=== PATIENT | female | born 1980 | race Caucasian/White ===

== ENCOUNTER 2022-08-23 10:00 | Outpatient (RCR) | payer OTHER, SELFPAY | END 2022-09-14 15:05 | disposition home or self-care (01) | LOC: PT 10:00 | PROVIDERS: Visit Provider Orthopaedic Surgery Adult Reconstructive Orthopaedic Surgery | DX: M77.11 Lateral epicondylitis, right elbow (principal); Z48.817 Encounter for surgical aftercare following surgery on the skin and subcutaneous tissue; Z47.89 Encounter for other orthopedic aftercare | CPT/HCPCS: 97010; 97014; 97110; 97140; 97163; 97530; G0283 ==

== ENCOUNTER 2024-08-29 08:39 | Outpatient (CLI) | payer OTHER, SELFPAY ==
--- NOTE | 2024-08-29 | NM_ITS ---
FINAL REPORT CLINICAL HISTORY: RUQ PAIN COMPARISON: None FINDINGS: Sequential anterior projection images of the abdomen were obtained after the intravenous injection of 7.58 mCi technetium 99m Choletec. There is normal uptake of radiotracer by the liver. The bile ducts are visualized by 5 minutes. Gallbladder activity is seen by 45 minutes. Bowel activity is noted by 10 minutes. After 1 hour, 1.7 ?g of CCK was injected intravenously for calculation of gallbladder ejection fraction. The gallbladder ejection fraction is 93%, which is within normal limits. IMPRESSION: No evidence of cystic duct or bile duct obstruction. Normal gallbladder ejection fraction of 93%. Reviewed, Interpreted and Dictated by Darlin aSntos MD Transcribed by Kamille Yung Authenticated and [facility]
--- OUTSIDE RECORDS SUMMARY | 2024-08-29 08:41 | XMS_ITS | Data Portability ---
Author Organization [place] [employer] [facility] Address [address] [place] [address] Assessment No assessment recorded. Plan of Treatment Reminders Order Date Submit Date Provider Last Modified By Organization Details Last Modified Time Details Appointments FOLLOW UP 2024 11:00A M Alin Driver APRN Not available Not available Not available Lab None recorded. Referral None recorded. Procedures None recorded. Surgeries None recorded. Imaging NM, hepatobil iary scan, w/ CCK - Had abd CT in the ER [address] [facility] [address] [place], [address], 08/26/2024 16:38:46 XR, knee, 3 view [address], [address], 07/23/2024 16:58:07 Medication Orders lisinopri l 10 mg-hydroc hlorothia zide 12.5 mg tablet 2024 025 [facility], [address] [place] [address], [id number], 08/26/2024 14:07:40 dicyclomi ne 10 mg capsule 2024 025 [facility], [address] [place] [address], [id number], 08/26/2024 14:07:39 diclofena c sodium 50 mg tablet,de layed release 2024 025 [facility], [address] [place] [address], [id number], 08/19/2024 17:07:52 Mirena 21 mcg/24 hr (up to 8 years) 52 mg intrauter ine device 2023 024 [place] [id number] Not available 04/20/2023 16:46:19 Medrol (Gregory) 4 mg tablets in a dose pack [address] [facility], [address] [place] [address], [id number], 04/20/2023 15:01:24 cyclobenz aprine 5 mg tablet 2023 024 [facility], [address] [place] [address], [id number], 07/23/2024 14:03:15 Patient TargetsNo targets recorded. Patient Instructions Encounter Date Encounter Id Patient Instructions Last Modified By Organization Details Last Modified Time 07/23/2024 [id number] application of DONAL wrap* [email or web address] Not available 07/30/2024 09:49:29 Reason for Referral None Reported. Results Created Date Observation Date Name Description Value Unit Range Abnormal Flag Note LastModifiedBy Organization Detail LastModifiedTime 04/20/1904/28/2023 IMAGE -GUID ED PAP W/AGE BASED SCR CHRYSTAL COLS comment This order for age-b ased cervi jaci cance r and STI scree laurence follo ws ACOG guide lines (PB 168, 140, FAQ07 1). See indiv idual assay s for perfo rming site locat ion. Not Available [facility] [address] [facility], [place], [address], 04/28/2023 17:55:23 04/20/1904/28/2023 IMAGE -GUID ED PAP W/AGE BASED SCR CHRYSTAL COLS clinical information: normal None given Not Available [facility] [address] [place], [address], 04/28/2023 17:55:23 04/20/19 24 04/28/2023 IMAGE -GUID ED PAP W/AGE BASED SCR CHRYSTAL COLS LMP: normal NONE GIVEN Not Available [facility] [address] [place], [address], 04/28/2023 17:55:23 04/20/19 24 04/28/2023 IMAGE -GUID ED PAP W/AGE BASED SCR CHRYSTAL COLS prev. Pap: normal NONE GIVEN Not Available [facility] [address] [facility], [place], [address], 04/28/2023 17:55:23 04/20/19 24 04/28/2023 IMAGE -GUID ED PAP W/AGE BASED SCR CHRYSTAL COLS prev. BX: normal NONE GIVEN Not Available [facility] [address] [place], [address], 04/28/2023 17:55:23 04/20/19 24 04/28/2023 IMAGE -GUID ED PAP W/AGE BASED SCR CHRYSTAL COLS source: normal Vagin a, Cervi x, Endoc ervix Not Available [facility] [address] [place], [address], 04/28/2023 17:55:23 04/20/19 24 04/28/2023 IMAGE -GUID ED PAP W/AGE BASED SCR CHRYSTAL COLS statement of adequacy: normal Satis facto ry for evalu ation . Endoc ervic al/tr ansfo rmati on zone compo nent prese nt. Age and/o r menst rual statu s not provi ded Not Available [facility] [address] [facility] [place], [address], 04/28/2023 17:55:23 04/20/19 24 04/28/2023 IMAGE -GUID ED PAP W/AGE BASED SCR CHRYSTAL COLS interpretati on/result: normal Cytol ogy Resul ts: Negat dino for intra epith elial lesio n or han sheffield . Not Available [facility] [address] [place], [address], 04/28/2023 17:55:23 04/20/19 24 04/28/2023 IMAGE -GUID ED PAP W/AGE BASED SCR CHRYSTAL COLS comment: normal This Pap test has been evalu ated with compu ter harini nena techn ology . Not Available [facility] [address] [place], [address], 04/28/2023 17:55:23 04/20/19 24 04/28/2023 IMAGE -GUID ED PAP W/AGE BASED SCR CHRYSTAL COLS cytotechnolo gist: normal DXP, CT( CP) CT Scree laurence locat ion: [facility] [place] [address] [facility] [place] [address] Not Available [facility] [address] [facility], [place], [address], 04/28/2023 17:55:23 04/20/19 24 04/28/2023 IMAGE -GUID ED PAP W/AGE BASED SCR CHRYSTAL COLS pathologist: normal Renato Albright M.D. Board Certi fied in Anato yoselin Patho logy, Clini jaci Patho logy and Cytop athol ogy [phone] (elec troni c signa ture) Not Available [facility] [address] [place], [address], 04/28/2023 17:55:23 04/20/19 24 04/28/2023 IMAGE -GUID ED PAP W/AGE BASED SCR CHRYSTAL COLS comment EXPLA NATOR Y NOTE: The Pap is a scree laurence test for cervi jaci cance r. It is not a diagn ostic test and is subje ct to false negat dino and false posit dino resul ts. It is most relia ble when a satis facto ry sampl e, regul charlotte obtai raheel, is submi tted with relev ant clini jaci findi ngs and histo ry, and when the Pap resul t is evalu ated along with histo akash and curre nt clini jaci infor bruce n. Not Available [facility] [address] [place], [address], 04/28/2023 17:55:23 04/20/19 24 04/28/2023 IMAGE -GUID ED PAP W/AGE BASED SCR CHRYSTAL COLS HPV MRNA E6/E7 Detect ed not detect ed abnormal Metho dolog y: Trans cript ion-M ediat ed Ampli ficat ion This assay detec ts E6/E7 viral messe nger RNA (mRNA ) from 14 high- risk HPV types (16,1 8,31, 33,35 ,39,4 5,51, 52,56 ,58,5 9,66, 68). Cervi jaic sourc es are requi red for HPV testi ng. If a vagin al sourc e from a patie nt who has had a total hyste recto my with remov al of cervi x was submi tted, pleas e conta ct the testi ng labor atory for alter nativ e testi ng optio ns. For addit ional infor teri rowe e refer to http: //[facility] yuliya odell.que stdia gnost ics.c om/fa q/FAQ 129v1 (This link if provi ded for infor bruce odell/ educa jovita l purpo ses only. ) Not Available [facility] [address] [place], [address], 04/28/2023 17:55:23 04/20/19 24 04/28/2023 HPV GENOT YPES 16,18 /45 HPV 16 RNA NOT DETECT ED not detect ed Not Available [facility] [address] [place], [address], 04/28/2023 17:55:24 04/20/19 24 04/28/2023 HPV GENOT YPES 16,18 /45 HPV 18/45 RNA DETECT ED not detect ed abnormal Metho dolog y: Trans cript ion Media nena Ampli ficat ion Cervi jaci sourc es are requi red for HPV testi ng. If a vagin al sourc e from a patie nt who has had a total hyste recto my with remov al of cervi x was submi tted, pleas e conta ct the testi ng labor atory for alter nativ e testi ng optio ns. Not Available [facility] [address] [place] [address], [place], [address], 04/28/2023 17:55:24 08/20/19 25 08/19/2024 urina lysis , dipst ick Leukocytes Negati ve Not Available [address], [address], 08/19/2024 16:42:22 08/20/19 25 08/19/2024 urina lysis , dipst ick Nitrite negati ve Not Available [address], [address], 08/19/2024 16:42:22 08/20/19 25 08/19/2024 urina lysis , dipst ick Urobilinogen .2 Not Available [address], [address], 08/19/2024 16:42:22 08/20/19 25 08/19/2024 urina lysis , dipst ick Protein Negati ve Not Available [address], [address], 08/19/2024 16:42:22 08/20/19 25 08/19/2024 urina lysis , dipst ick pH 7.0 Not Available [address], [address], 08/19/2024 16:42:22 08/20/19 25 08/19/2024 urina lysis , dipst ick Blood Negati ve Not Available [address], [address], 08/19/2024 16:42:22 08/20/19 25 08/19/2024 urina lysis , dipst ick Specific [place] 1.025 Not Available [address], [address], 08/19/2024 16:42:22 08/20/19 25 08/19/2024 urina lysis , dipst ick Ketone Negati ve Not Available [address], [address], 08/19/2024 16:42:22 08/20/19 25 08/19/2024 urina lysis , dipst ick Bilirubin Negati ve Not Available [address], [address], 08/19/2024 16:42:22 08/20/19 25 08/19/2024 urina lysis , dipst ick Glucose Negati ve Not Available [address], [address], 08/19/2024 16:42:22 08/20/19 25 08/19/2024 urina lysis , dipst ick Appearance Slight ly Cloudy Not Available [address], [address], 08/19/2024 16:42:22 08/20/19 25 08/19/2024 urina lysis , dipst ick Color Yellow Not Available [address], [address], 08/19/2024 16:42:22 03/16/19 24 03/16/2023 US, trans vagin al No observ ation record ed. [email or web address] [address], [place], [address], 03/16/2023 11:13:29 07/24/19 25 XR, knee, 3 view No observ ation record ed. [email or web address] [address], [address], 07/23/2024 17:06:53 Result Notes None recorded. Problems Name Problem SNOMED Code Status Onset Date Resolution Date Notes Provider Name and Address Organization Details Recorded Time Generali zed anxiety disorder 35640825 Completed 201604/08/2020 Problem Code: F41.1; Problem Code Type: ICD-10; Not Available [facility] 22:15:25 Hyperten sive disorder 08910125 Completed 201604/08/2020 Problem Code: I10; Problem Code Type: ICD-10; Not Available [facility] 2 22:15:25 Low back pain 742900805 Completed 201602/07/2017 Problem Code: M54.5; Problem Code Type: ICD-10; Not Available [facility] 2 22:15:26 Pain in left lower limb 884207631 Completed 201602/07/2017 Not Available [facility] 2 22:15:26 Pain in limb 02731033 Completed 201602/07/2017 Problem Code: 729.5; Problem Code Type: ICD-9; Not Available [facility] 2 22:15:29 Breast lump 57340592 Completed 201602/07/2017 Problem Code: N63; Problem Code Type: ICD-10; Not Available [facility] 2 22:15:26 Polyp of cervix 53935129 Completed 201602/07/2017 Problem Code: N84.1; Problem Code Type: ICD-10; Not Available [facility] 2 22:15:26 Mucous polyp of cervix 24951127 Completed 201602/07/2017 Problem Code: 622.7; Problem Code Type: ICD-9; Not Available [facility] 2 22:15:29 Trichomo nal vulvovag initis 42507379 Completed 201605/06/2016 Problem Code: A59.01; Problem Code Type: ICD-10; Not Available [facility] 2 22:15:25 Low back pain 406719373 Completed 201602/07/2017 Problem Code: M54.5; Problem Code Type: ICD-10; Not Available [facility] 2 22:15:26 Prolapse d lumbar interver tebral disc 372934756 Completed 201604/08/2020 Problem Code: M51.26; Problem Code Type: ICD-10; Not Available [facility] 2 22:15:26 Infectio n by Trichomo darinel 50557593 Completed 201605/06/2016 Problem Code: 131.9; Problem Code Type: ICD-9; Not Available [facility] 2 22:15:28 Non-supp urative otitis media 043027112 Completed 201602/07/2017 Not Available [facility] 2 22:15:25 Dizzines s and giddines s 918769440 Completed 201602/07/2017 Problem Code: R42; Problem Code Type: ICD-10; Not Available [facility] 2 22:15:27 Acute frontal sinusiti s 92140639 Completed 201608/26/2016 Problem Code: J01.10; Problem Code Type: ICD-10; Not Available [facility] 2 22:15:27 Pain of breast 56672834 Completed 201612/04/2016 Problem Code: 611.71; Problem Code Type: ICD-9; Not Available [facility] 2 22:15:29 Left upper quadrant pain 172134809 Completed 201612/04/2016 Problem Code: R10.12; Problem Code Type: ICD-10; Not Available [facility] 2 22:15:29 Viral enteriti s of intestin e 17928674 Completed 201602/25/2017 Problem Code: A08.4; Problem Code Type: ICD-10; Not Available [facility] 2 22:15:25 Nausea and vomiting 76513249 Completed 201601/10/2017 Problem Code: R11.2; Problem Code Type: ICD-10; Not Available [facility] 2 22:15:27 Intestin al infectio us disease 231638622 Completed 201602/25/2017 Problem Code: 008.8; Problem Code Type: ICD-9; Not Available [facility] 2 22:15:28 Influenz a 8783314 Completed 201604/08/2017 Problem Code: J10.1; Problem Code Type: ICD-10; Not Available [facility] 2 22:15:25 Cough 35107228 Completed 201602/21/2017 Problem Code: R05; Problem Code Type: ICD-10; Not Available [facility] 2 22:15:27 Influenz a with respirat ory manifest ation other than pneumoni a Completed 201604/08/2017 Problem Code: 487.1; Problem Code Type: ICD-9; Not Available [facility] 2 22:15:29 Breast lump 86423614 Completed 201704/08/2020 Problem Code: N63; Problem Code Type: ICD-10; Not Available [facility] 2 22:15:26 Median nerve entrapme nt 679392118 Completed 201804/08/2020 Not Available [facility] 2 22:15:25 Sprain of radiocar pal ligament 076665184 Completed 201804/08/2020 Not Available [facility] 2 22:15:27 Nicotine dependen ce 53506846 Active 2020 Problem Code: F17.200; Problem Code Type: ICD-10; Not Available [facility] 22:15:25 Urinary tract infectio us disease 37044216 Active 2020 Problem Code: N39.0; Problem Code Type: ICD-10; Not Available [facility] 22:15:26 Dysuria 49764838 Active 2020 Problem Code: R30.0; Problem Code Type: ICD-10; Not Available [facility] 2 22:15:27 Exposure to SARS-CoV -2 Completed 202005/16/2021 Problem Code: Z20.822; Problem Code Type: ICD-10; Not Available [facility] 22:15:27 Tobacco dependen ce 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 16:56:57 [facility] hyperten chad 97665608 Active 2024 Antonia Driver APRN [address] [place], [address] , [employer] 16:57:45 Divertic ulitis of intestin e 870370891 Active 2024 Antonia Driver APRN [address] [place], [address] , [employer] 13:19:47 Right upper quadrant pain 276052115 Active 2024 Antonia Driver APRN [address] [place], [address] , [employer] 13:29:14 Problem Notes None recorded. Procedures Surgical History Date Name Laterality Status Provider Name and Address Organization Details Recorded Time 05/30/19 24 Colposcopy cancelled [employer] 05/24/2023 16:12:44 04/20/19 24 IUD Insertion completed Leonardo Del Angel CNM [address] [place], [address], [employer]. 04/20/2023 15:21:58 04/20/19 24 Date of Last Pap Smear completed [employer]. 05/04/2023 13:56:27 appendectomy completed [employer]. 04/06/2023 13:02:17 Removal of ovarian cyst(s) completed [employer]. 04/06/2023 13:02:26 Imaging Results None recorded. Procedure Notes None recorded. Medical Equipment None Reported. Allergies No known drug allergies Medications Name Sig Start Date Stop Date Status Note LastModified by Organization Details LastModified Time cyclobenzap rine 10 mg tablet TAKE 1 TABLET EVERY 8 HOURS NEEDED FOR MUSCLE SPASMS 01/23 completed Not Available Not Available Not Available amoxicillin 500 mg capsule Take 1 capsule every 8 hours by oral route. 08/26 completed Not Available Not Available Not Available Mirena 21 mcg/24 hr (up to 8 years) 52 mg intrauterin e device Take 1 device by intrauter ine route. 2023 active Not Available Not Available Not Avai lable promethazin e-DM 6.25 mg-15 mg/5 mL oral syrup Take 1 teaspoonf ul by mouth every 6 hours as needed. 04/08 completed Not Available Not Available Not Available tizanidine 4 mg tablet 1 po q hs 12/04 completed Not Available Not Available Not Available meloxicam 15 mg tablet Take 1 tab by mouth once daily for inflammat ion. 04/08 completed Not Available Not Available Not Available prednisone 20 mg tablet Take 2 tablets every day by oral route for 7 days. 02/26 completed Not Available Not Available Not Available medroxyprog esterone 5 mg tablet take 1 tablet (5 mg) by oral route once daily for 10 days 04/06 completed Not Available Not Available Not Available Zithromax Z-Gregory 250 mg tablet Take 2 tablet(s) by mouth on day 1 then 1 tablet every day for the next 4 days. 03/18 completed Not Available Not Available Not Available metronidazo le 500 mg tablet TAKE 1 TABLET 3 TIMES EACH DAY FOR 7 DAYS 01/23 completed Not Available Not Available Not Available dextrometho rphan-guaif enesin 10 mg-100 mg/5 mL oral syrup one teaspoon every 6 hours by mouth as needed 08/26 completed Not Available Not Available Not Available Tamiflu 75 mg capsule Take 1 capsule(s ) by mouth bid for 5 days 03/18 completed Not Available Not Available Not Available sulfamethox azole 800 mg-trimetho prim 160 mg tablet take 1 tablet by oral route every 12 hours for 10 days 05/16 completed Not Available Not Available Not Available tramadol 50 mg tablet 1 pill every 6 Hours prn pain. 08/04 completed Not Available Not Available Not Available ketorolac 30 mg/mL (1 mL) injection solution Inject 1 mL every 6 hours by intramusc ular route. 08/26 completed Not Available Not Available Not Available Zofran 4 mg tablet Take one by mouth every 8 hours as needed for nausea 02/07 completed Not Available Not Available Not Available oxycodone-a cetaminophe n 5 mg-325 mg tablet TAKE 1 TABLET EVERY 4 HOURS NEEDED FOR MODERATE PAIN 01/23 completed Not Available Not Available Not Available amoxicillin 875 mg tablet Take 1 tablet(s) by mouth q12h for 10 days 08/06 completed Not Available Not Available Not Available meclizine 25 mg tablet Take 1 tablet every 8 hours as needed 08/26 completed Not Available Not Available Not Available hydrocodone 7.5 mg-acetamin ophen 325 mg tablet TAKE 1 TABLET EVERY 6 TO 8 HOURS NEEDED FOR PAIN 01/23 completed Not Available Not Available Not Available cephalexin 500 mg capsule TAKE 1 CAPSULE EVERY 12 HOURS FOR 7 DAYS 04/06 completed Not Available Not Available Not Available naproxen sodium 550 mg tablet TAKE 1 TABLET EVERY 12 HOURS NEEDED 01/23 completed Not Available Not Available Not Available trazodone 150 mg tablet TAKE ONE TABLET BY MOUTH EVERY DAY NEEDED 04/06 completed Not Available Not Available Not Available hydroxyzine HCl 25 mg tablet 1 po bid 04/28 completed Not Available Not Available Not Available hydrochloro thiazide 25 mg tablet TAKE ONE TABLET BY MOUTH EVERY DAY in THE morning FOR BLOOD PRESSURE 08/26 completed Not Available Not Available Not Available diclofenac sodium 50 mg tablet,alisa yed release TAKE ONE TABLET BY MOUTH TWICE DAILY with a MEAL FOR 10 DAYS, FOR knee sprain 08/19 completed Not Available Not Available Not Available lisinopril 10 mg-hydrochl orothiazide 12.5 mg tablet Take 1 tablet every day by oral route in the morning, for BP. 2024 active Not Available Not Available Not Avai lable ibuprofen 600 mg tablet TAKE 1 TABLET EVERY 6 HOURS NEEDED 04/06 completed Not Available Not Available Not Available methylpredn isolone 4 mg tablets in a dose pack TAKE 6 TABLETS BY MOUTH ON DAY 1, TAKE 5 TABS ON DAY 2 ,TAKE 4 TABS ON DAY 3, TAKE 3 TABS ON DAY 4 , TAKE 2 TABS ON DAY 5, THEN TAKE 1 TAB ON DAY 6 04/19 completed Not Available Not Available Not Available albuterol sulfate HFA 90 mcg/actuati on aerosol inhaler INHALE 2 PUFFS EVERY 4 TO 6 HOURS NEEDED FOR SHORTNESS OF BREATH OR WHEEZING. DO NOT USE MORE THAN 16 PUFFS IN 24 HOURS 04/06 completed Not Available Not Available Not Available Naprosyn 500 mg tablet Take 1 tablet(s) by mouth bid 12/04 completed Not Available Not Available Not Available cefdinir 300 mg capsule Take 1 capsule every 12 hours by oral route with meals for 10 days. 02/26 completed Not Available Not Available Not Available neomycin 3.5 mg-polymyxi n 10,000 unit-hydroc ort 10 mg/mL eye drop,susp instill 1 drop into affected eye(s) by ophthalmi c route every 3 hours 05/16 completed Not Available Not Available Not Available doxycycline hyclate 100 mg tablet TAKE 1 TABLET EVERY 12 HOURS FOR 10 DAYS 02/26 completed Not Available Not Available Not Available dicyclomine 10 mg capsule Take 1 capsule 3 times a day by oral route as needed, for abd pain. 2024 active Not Available Not Available Not Avai lable amoxicillin 875 mg-potassiu m clavulanate 125 mg tablet Take 1 tablet every 12 hours by oral route. active Not Available Not Available No t Available cyclobenzap rine 5 mg tablet TAKE ONE TABLET BY MOUTH THREE TIMES DAILY NEEDED FOR muscle SPASM active Not Available Not Available No t Available Chantix Continuing Month Box 1 mg tablet 1 pill po BID 01/06 completed Not Available Not Available Not Available Chantix Starting Month Box 0.5 mg (11)-1 mg (42) tablets in dose pack Take as Directed 08/09 completed Not Available Not Available Not Available omeprazole 20 mg delayed release,dis integrating tablet Take by oral route. active Not Available Not Available No t Available Vitals Date Recorded Body weight Body temperature Heart rate Oxygen saturation Oxygen saturation in Arterial blood by Pulse oximetry Systolic And Diastolic Systolic And Diastolic Systolic And Diastolic Provider Name and Address Organization Details Last Updated DateTime 4 89406.7 3 g 98 [degF] 77 /min 98 % 98 % 160/80 mm[Hg] 153/90 mm[Hg] 155/83 mm[Hg] SCOTT DIXON [employer] 4 15:15:04 Date Recorded Body height Body mass index (BMI) Body weight Heart rate Oxygen saturation Oxygen saturation in Arterial blood by Pulse oximetry Systolic And Diastolic Provider Name and Address Organization Details Last Updated DateTime 4 167.64 cm 27.1 kg/m2 25635.2 4 g 79 /min 99 % 99 % 138/82 mm[Hg] GLENYS SHAW [employer] 4 15:01:15 Date Recorded Body weight Body temperature Heart rate Oxygen saturation Oxygen saturation in Arterial blood by Pulse oximetry Systolic And Diastolic Systolic And Diastolic Systolic And Diastolic Provider Name and Address Organization Details Last Updated DateTime 5 67632.0 5 g 98 [degF] 71 /min 97 % 97 % 202/102 mm[Hg] 183/101 mm[Hg] 161/73 mm[Hg] SCOTT [employer] 5 14:03:00 Date Recorded Body weight Body temperature Heart rate Oxygen saturation Oxygen saturation in Arterial blood by Pulse oximetry Systolic And Diastolic Systolic And Diastolic Systolic And Diastolic Provider Name and Address Organization Details Last Updated DateTime 5 31628.8 6 g 98.7 [degF] 91 /min 96 % 96 % 160/90 mm[Hg] 156/80 mm[Hg] 155/82 mm[Hg] SCOTT [employer] 5 16:42:00 Date Recorded Body weight Body temperature Heart rate Oxygen saturation Oxygen saturation in Arterial blood by Pulse oximetry Systolic And Diastolic Systolic And Diastolic Systolic And Diastolic Provider Name and Address Organization Details Last Updated DateTime 5 01215.1 1 g 98.8 [degF] 98 /min 96 % 96 % 161/79 mm[Hg] 146/72 mm[Hg] 145/74 mm[Hg] [employer] 5 13:16:15 Social History Question Answer Notes LastModified by Organizat ion Details LastModified Time Tobacco Smoking Status Current Every Day Smoker SocialHistor yQuestion: 'Tobacco/Alc ohol/Supplem ents'; SocialHistor yResponse: 'Current Everyday Smoker'; Not Available [facility] 10/18/2021 22:58:54 Do You Have An Advance Directive? No Information not available 01/23/2023 Is Your Home Air Conditioned? Yes Information not available 01/23/2023 In The 14 Days Before Symptom Onset, Have You Had Close Contact With A Laboratory-confir [facility] COVID-19 While That Case Was Ill? No Information not available 01/23/2023 In The 14 Days Before Symptom Onset, Have You Had Close Contact With A Person Who Is Under Investigation For COVID-19 While That Person Was Ill? No Information not available 01/23/2023 Have You Been To An Area Known To Be High Risk For COVID-19? No Information not available 01/23/2023 What Type Of Diet Are You Following? REGULAR Information not available 01/23/2023 Do You Have A Medical Power Of [employer]? No Information not available 01/23/2023 What Was The Date Of Your Most Recent Tobacco Screening? 08/26/2024 Information not available 08/26/2024 What Is Your Current Pack Years? 20-29packye ars Information not available 01/23/2023 Do You Use Your Seat Belt Or Car Seat Routinely? Yes Information not available 01/23/2023 Are You Sexually Active? Yes [email or web address] Information not available 04/06/2023 Do You Have Smoke And Carbon Monoxide Detectors In Your Home? Yes Information not available 01/23/2023 At What Age Did You Start Smoking Tobacco? 17 Information not available 01/23/2023 Are You Passively Exposed To Smoke? Yes Information no t available 01/23/2023 Are There Any Smokers In Your House? Yes Information not available 01/23/2023 How Much Tobacco Do You Smoke? 1 PPD Information not available 01/23/2023 Do You Use Sunscreen Routinely? No Information not available 01/23/2023 Have You Recently Traveled Abroad? No Information not available 01/23/2023 Do You Have Any Dietary Restrictions? No Information not available 01/23/2023 Sex: Female Functional Status Question Answer Note LastModified by Organizat ion Details LastModified Time Do you use any illicit or recreational drugs? No Information not available 01/23/2023 Do you or have you ever used any other forms of tobacco or nicotine? No Information not available 01/23/2023 What is your level of alcohol consumption? None Information not available 01/23/2023 Are you currently employed? Yes Information not available 01/23/2023 Do you have transportation difficulties? No Information not available 01/23/2023 Mental Status None recorded. Family History Relationship Description Onset Age of this Age Resolved Age Notes LastModified by Organization Details LastModified Time Unspecified Relation Family history of malignant neoplasm Relati ve: ''; [email or web address] Not available 10/18/2021 23:01:45 Unspecified Relation Family history of Hypertension Relati ve: ''; [email or web address] Not available 10/18/2021 23:01:45 Unspecified Relation Family history of diabetes mellitus type 2 Relati ve: ''; [email or web address] Not available 10/18/2021 23:01:46 Unspecified Relation Family history of Myocardial infarction Relati ve: ''; [email or web address] Not available 10/18/2021 23:01:46 Notes:*Procedure Description : Documented family medical history in mother*Relative: Mother *Procedure Description: Documented family medical history in father*Relative: Father *Procedure Description: Documented family medical history in brother*Relative: Brother Medical History No medical history recorded. Gynecological History Statement/Question Response Abnormal Pap Y Sexually Active? Y Menses Monthly Y STIs/STDs N Date of Last Pap Smear 04/20/2023 Age at Menarche 13 Most Recent Mammogram LMP Approximate Obstetrics History GPAL:G 2 P 2 0 0 2 Type Value Full Term 2 Living 2 Total 2 Immunizations Vaccine Type Date Status Note Provider Nam e and Address Organization Details Recorded Time Tdap 12/27/2015 completed Not Available [facility] 08/26/2024 12:26:48 COVID-19, mRNA, LNP-S, PF, 100 mcg/0.5mL dose or 50 mcg/0.25mL dose 10/14/2020 completed Not Available [facility] 12:26:48 COVID-19, mRNA, LNP-S, PF, 100 mcg/0.5mL dose or 50 mcg/0.25mL dose 11/11/2020 completed Not Available [facility] 12:26:48 Past Encounters Encounter ID Performer Location Encounter Start Date Encounter Closed Date Diagnosis/Indication Diagnosis SNOMED-CT Code Diagnosis ICD10 Code Diagnosis Note [id number] Antonia Driver[address] [address] 01/23/2023 13:02:20 01/23/2023 16:08:57 Acute exacerbation of chronic obstructive pulmonary disease 719176509 J44.1 New onset COPD with exacerbati on. Rest, push fluids, use of inhaler and mucinex explained. Insomnia 645221348 G47.0 0 Sleep hygiene explained. Tobacco de pendence caused by cigarettes 0027616976 7358212 F17.210 Long d/w pt regarding need for smoking cessation. [id number] Antonia Driver[address] [address] 02/26/2023 17:09:17 02/27/2023 08:59:50 Abnormal uterine bleeding 2386901651 9100 N93.9 She declines labs and transvag US today as she is uninsured. I will prescribe a trial of 10 days of provera, but cautioned her that if this continues she needs labs and US to r/o fibroid, malignancy , etc. Tobacco de pendence caused by cigarettes 8294481300 7889071 F17.210 Long d/w pt regarding need for smoking cessation. [id number] Leonardo Del Angel CNM [address],[place] [address] 04/06/2023 12:39:10 04/06/2023 13:50:08 Abnormal uterine bleeding 7846644062 9100 N93.9 [id number] Antonia Driver[address] [address] 04/11/2023 15:03:29 04/11/2023 15:40:10 Strain of left trapezius muscle 6180525791 1766487 S29.012A Adis, samples of topical volaren given and inst on use. Will avoid NSAIDS due to current DUB. Tobacco de pendence caused by cigarettes 7664314913 2271002 F17.210 Long d/w pt regarding need for smoking cessation. [id number] Leonardo Del Angel CNM [address] [place] [id number] 04/20/2023 14:48:03 04/20/2023 15:59:41 Irregular intermenstrual bleeding 75983060 N92.1 Insertion of intrauterine contraceptive device 32392545 Z30.023 [id number] [place] [address] 07/23/2024 13:32:24 07/23/2024 15:10:37 Pain of knee region 5879191010 M25.562 Sprain of medial collateral ligament of left knee joint 0034455535 2237671 S83.412A RICE, donal wrap applied, limited weight bearing. RTC for failure to improve with conservati ve tx in 1 week. [id number] [place] [address] 08/19/2024 16:32:11 08/19/2024 17:03:32 Acute low back pain 538903696 M54.50 Essential hypertension 79100576 I10 [id number] [place] [address] 08/26/2024 12:26:34 08/26/2024 13:46:27 Essential hypertension 01695773 I10 Continue HCTZ, add lisinopril . DASh diet, stop smoking! Right uppe r quadrant pain 162320724 R10.11 Suspect gallbladde r dz as etiology. Obtain HIDA scan to evaluate GB function as she had a fairly normal CT. Avoid fatty and fried foods. Health Concerns Section Related Observation LastModified by Organization Detai ls LastModified Time None Recorded Concern Status LastModified by Organization Details LastModified Time None Recorded Advance Directives Directive N: Payers Insurance Date Sequence Insurance Name Policy Number Policy Heard Covered Member ID Heard Member ID Guarantor Name 02/22/2023 SLIDING FEE SCHEDULE - DISCOUNT Celena Alpesh 07/23/2024 1 *SELF PAY* Juhi Betts 05/24/2023 SLIDING FEE SCHEDULE - DISCOUNT Celena Alpesh 08/25/2024 1 [facility] (MEDICAID REPLACEMENT - O) [place] Celena Betts [id number] Celena Betts Notes Date Note Type Note Provider Name and Address Organization Details Recorded Time 4 text/html Back PainReported bypatient.Location:thorac ic left; no radiation Quality:sharp; squeezing; tightness; burning Severity:worsening;pain level 6/10;interferes with sleep;interferes with work Duration:9 days; weeks Timing:acute Context:atraumatic; overuse Alleviating Factors:rest; position change; OTC analgesics; massage Aggravating Factors:twisting; extending back; pushing; pulling; reaching Associated Symptoms:no fever; no weakness; no numbness; no tingling; no shortness of breath; no unintentional weight loss; no chills; no night sweats; no gait instability; no recent increase in stress; no bowel dysfunction; no bladder dysfunction Previous Injury:no prior back injury; no prior malignancy; previous surgery/procedure date: Prior Imaging:none Antonia Driver APRN [address] [place] [address], [address], [employer]. 04/11/2023 16:09:42 4 text/html Pt here today for IUD insertion, see previous notes. Pt with hx of US TREVOR previously done.Procedure explained and consent obtained. Pt agrees to pap today Leonardo Del Angel CNM [address] [place], [address], [employer]. 04/20/2023 15:23:45 5 text/html KneeReported bypatient.Location:left; anterior; medial Quality:burning Severity:mild Duration:5 days Timing:acute Context:cannot identify; atraumatic Alleviating Factors:sitting; lying down Aggravating Factors:standing; walking; exercise Associated Symptoms:no weakness; no numbness; no tingling; no redness; no warmth; no ecchymosis; no catching/locking; no popping/clicking; no buckling; no instability; no radiation down leg; no drainage; no fever; no chills; no weight loss; no change in bowel/bladder habits;swelling Previous Surgery:none Prior Imaging:none Previous Injections:none Previous PT:none Work Related:no Working:regular duty Antonia Driver APRN [address] [place], [address], [employer]. 07/27/2024 19:28:53 5 text/html Abdominal PainReported bypatient.Location:RUQ; epigastric; flank right Quality:bloating;aching;s harp;colicky Severity:moderate;worse Duration:intermittent Onset/Timing:acute; within 1 hour of eating Aggravating Factors:movement Alleviating Factors:moving bowels; belching Associated Symptoms:no fever; no chills; no blood in the urine; no shortness of breath; no vomiting; no diarrhea; no constipation; normal stool; no blood in stool;heartburn;nausea;de creased appetite; no jaundice; no dysuria; no fatigue; no weight loss; no cough; no changes in stool; no urinary frequency; no orthopnea; no exertional dyspnea; no menstrual symptoms Other:denies possible Previous Tests, Treatment and/or Diagnostic Procedures:prescription medication; CT of the abdomen with contrastHypertension F/UReported bypatient.Medications:keanu ing medications as directed; no side effects from medication; checks blood pressure at home, range: (150/90) Lifestyle:not exercising regularly;does not adhere to low sodium diet Associated Symptoms:no dizziness; no lightheadedness; no chest pain; no shortness of breath; no palpitations; no calf pain with exertion; no headache Celena was seen in the [facility] ER on 08/24/24 for persistent right flank and epigastric abdominal pain. CT was completed and was fairly unremarkable. Pain presents after eating fatty fried foods. She has sweating, nausea, belching, early satiety, and bloating. Denies change in stools. Abd pain radiates from epigastrum to right flank and back. Her WBC count in ER was 17K, she wa started on augmentin. UA and cardiac testing was NEG. CXR was NEG. Antonia Driver APRN [address] [place], [address], [employer] 08/26/2024 14:22:47 OBGyn Episode No OBEpisode recorded.
--- OUTSIDE RECORDS SUMMARY | 2024-08-29 08:41 | XMS_ITS | Clinical Summary ---
Author Organization Healthcare Address [address] [place] [address] Care Team Providers Care Flooring Machine Feeder Name Role Phone rGicelda Dobbs APRN Primary Care Provider [phone] Social History Tobacco Use Types Packs/Day Years Used Date Smoking Tobacco: Every Day Comments:Smokes 1 pack of ci garettes per day Comments Unknown Sex and Gender Information Value Date Recorded Sex Assigned at Not on file Legal Sex Female 7:47 PM EDT Gender Identity Not on file Sexual Orientation Not on file Last Filed Vital Signs Vital Sign Reading Time Taken Comments Blood Pressure - - Pulse - - Temperature - - Respiratory Rate - - Oxygen Saturation - - Inhaled Oxygen Concentration - - Weight 72.8 kg (160 lb 7.9 oz) 04/05/2016 9:11 A M EST Height 167.6 cm (5' 6 ) 04/05/2016 9:11 AM EST Body Mass Index 25.9 04/05/2016 9:11 AM EST Plan of Treatment Not on file Care Teams Flooring Machine Feeder Relationship Specialty Start Date End Date Gricelda Dobbs APRN [address] [place], [place] [id number] PCP - General 06/25/20
--- OUTSIDE RECORDS SUMMARY | 2024-08-29 08:41 | XMS_ITS | Continuity of Care Document ---
Author Organization [place] - [employer] Address [address] [place] [address] Assessment No assessment recorded. Plan of Treatment Reminders Order Date Submit Date Provider Last Modified By Organization Details Last Modified Time Details Appointments FOLLOW UP 30 2024 11:00A M Alin Driver APRN Not available Not available Not available Lab None recorded. Referral None recorded. Procedures None recorded. Surgeries None recorded. Imaging NM, hepatobil iary scan, w/ CCK - Had abd CT in the ER [address] [place], [address], 08/26/2024 16:38:46 Medication Orders lisinopri l 10 mg-hydroc hlorothia zide 12.5 mg tablet 2024 025 [facility], [address] [place] [address], [address], 08/26/2024 14:07:40 dicyclomi ne 10 mg capsule 2024 025 [facility], [address] [place] [address], [id number], 08/26/2024 14:07:39 Patient TargetsNo targets recorded. Patient InstructionsNo instructions recorded. Reason for Referral None Reported. Problems Name Problem SNOMED Code Status Onset Date Resolution Date Notes Provider Name and Address Organization Details Recorded Time Generali salima anxiety disorder 56559735 Completed 201604/08/2020 Problem Code: F41.1; Problem Code Type: ICD-10; Not Available [facility] 2 22:15:25 Hyperten sive disorder 34170731 Completed 201604/08/2020 Problem Code: I10; Problem Code Type: ICD-10; Not Available [facility] 2 22:15:25 Low back pain 395126751 Completed 201602/07/2017 Problem Code: M54.5; Problem Code Type: ICD-10; Not Available [facility] 2 22:15:26 Pain in left lower limb 127261454 Completed 201602/07/2017 Not Available [facility] 2 22:15:26 Pain in limb 90665439 Completed 201602/07/2017 Problem Code: 729.5; Problem Code Type: ICD-9; Not Available [facility] 2 22:15:29 Breast lump 46098781 Completed 201602/07/2017 Problem Code: N63; Problem Code Type: ICD-10; Not Available [facility] 2 22:15:26 Polyp of cervix 70885267 Completed 201602/07/2017 Problem Code: N84.1; Problem Code Type: ICD-10; Not Available [facility] 2 22:15:26 Mucous polyp of cervix 60118544 Completed 201602/07/2017 Problem Code: 622.7; Problem Code Type: ICD-9; Not Available [facility] 2 22:15:29 Trichomo nal vulvovag initis 83647707 Completed 201605/06/2016 Problem Code: A59.01; Problem Code Type: ICD-10; Not Available [facility] 2 22:15:25 Low back pain 427825840 Completed 201602/07/2017 Problem Code: M54.5; Problem Code Type: ICD-10; Not Available [facility] 2 22:15:26 Prolapse d lumbar interver tebral disc 558799564 Completed 201604/08/2020 Problem Code: M51.26; Problem Code Type: ICD-10; Not Available [facility] 22:15:26 Infectio n by Ashok tena 90593503 Completed 201605/06/2016 Problem Code: 131.9; Problem Code Type: ICD-9; Not Available [facility] 22:15:28 Non-supp urative otitis media 878271168 Completed 201602/07/2017 Not Available [facility] 22:15:25 Dizzines s and giddines s 305331605 Completed 201602/07/2017 Problem Code: R42; Problem Code Type: ICD-10; Not Available [facility] 22:15:27 Acute frontal sinusiti s 49310502 Completed 201608/26/2016 Problem Code: J01.10; Problem Code Type: ICD-10; Not Available [facility] 2 22:15:27 Pain of breast 15877669 Completed 201612/04/2016 Problem Code: 611.71; Problem Code Type: ICD-9; Not Available [facility] 22:15:29 Left upper quadrant pain 831917198 Completed 201612/04/2016 Problem Code: R10.12; Problem Code Type: ICD-10; Not Available [facility] 22:15:29 Viral enteriti s of intestin e 99077331 Completed 201602/25/2017 Problem Code: A08.4; Problem Code Type: ICD-10; Not Available [facility] 2 22:15:25 Nausea and vomiting 59045746 Completed 201601/10/2017 Problem Code: R11.2; Problem Code Type: ICD-10; Not Available [facility] 22:15:27 Intestin al infectio us disease 766192803 Completed 201602/25/2017 Problem Code: 008.8; Problem Code Type: ICD-9; Not Available [facility] 2 22:15:28 Influenz a 7142789 Completed 201604/08/2017 Problem Code: J10.1; Problem Code Type: ICD-10; Not Available [facility] 2 22:15:25 Cough 19273406 Completed 201602/21/2017 Problem Code: R05; Problem Code Type: ICD-10; Not Available [facility] 2 22:15:27 Influenz a with respirat ory manifest ation other than pneumoni a Completed 201604/08/2017 Problem Code: 487.1; Problem Code Type: ICD-9; Not Available [facility] 2 22:15:29 Breast lump 32310868 Completed 201704/08/2020 Problem Code: N63; Problem Code Type: ICD-10; Not Available [facility] 2 22:15:26 Median nerve entrapme nt 869045640 Completed 201804/08/2020 Not Available [facility] 2 22:15:25 Sprain of radiocar pal ligament 687875777 Completed 201804/08/2020 Not Available [facility] 2 22:15:27 Nicotine dependen ce 33055514 Active 2020 Problem Code: F17.200; Problem Code Type: ICD-10; Not Available [facility] 2 22:15:25 Urinary tract infectio us disease 68678925 Active 2020 Problem Code: N39.0; Problem Code Type: ICD-10; Not Available [facility] 2 22:15:26 Dysuria 63813338 Active 2020 Problem Code: R30.0; Problem Code Type: ICD-10; Not Available [facility] 2 22:15:27 Exposure to SARS-CoV -2 Completed 202005/16/2021 Problem Code: Z20.822; Problem Code Type: ICD-10; Not Available [facility] 2 22:15:27 Tobacco dependen ce caused by cigarett es 50637846362 462535 Active 2021 Problem Code: F17.210; Problem Code Type: ICD-10; Not Available [facility] 22:15:25 Premenop ausal menorrha ailyn Active 2021 Not Available [facility] 22:15:26 Body mass index 25-29 - overweig ht 894436909 Active 2021 Problem Code: Z68.28; Problem Code Type: ICD-10; Not Available [facility] 2 22:15:28 Acute low back pain 763757397 Active 2024 Antonia Driver, TANKER DRIVER [address] [place], [place], [address] [place] [address] , [employer] 16:56:57 [facility] hyperten chad 59260860 Active 2024 Antonia Driver, TANKER DRIVER [address] [place], [place], [address] [place] [address] , [employer] 5 16:57:45 Divertic ulitis of intestin e 717345302 Active 2024 Antonia Driver, TANKER DRIVER [address] [place], [place], [address] [place] [address] , [employer] 13:19:47 Right upper quadrant pain 389111324 Active 2024 Antonia Driver, YASMINE [address] [place], [place], [address] [place] [address] , [employer] 5 13:29:14 Problem Notes None recorded. Procedures Surgical History Date Name Laterality Status Provider Name and Address Organization Details Recorded Time 05/30/19 24 Colposcopy cancelled [facility] [facility] 05/24/2023 16:12:44 04/20/19 24 IUD Insertion completed Leonardo Del Angel CNM [address] [place], [place], [address] [place] [address], [employer] 04/20/2023 15:21:58 04/20/19 24 Date of Last Pap Smear completed [facility] [employer] 05/04/2023 13:56:27 appendectomy completed [facility] [employer] 04/06/2023 13:02:17 Removal of ovarian cyst(s) completed [facility] [employer] 04/06/2023 13:02:26 Imaging Results None recorded. Procedure [...] Address Organization Details Last Updated DateTime 5 08871.1 1 g 98.8 [degF] 98 /min 96 % 96 % 161/79 mm[Hg] 146/72 mm[Hg] 145/74 mm[Hg] [employer] [employer] 5 13:16:15 Social History Question Answer Notes LastModified by Organizat ion Details LastModified Time Tobacco Smoking Status Current Every Day Smoker SocialHistor yQuestion: 'Tobacco/Alc ohol/Supplem ents'; SocialHistor yResponse: 'Current Everyday Smoker'; Not Available [facility] 10/18/2021 22:58:54 Do You Have An Advance Directive? No Information not available 01/23/2023 Is Your Home Air Conditioned? Yes Information not available 01/23/2023 In The 14 Days Before Symptom Onset, Have You Had Close Contact With A Laboratory-confir med COVID-19 While That Case Was Ill? No [...] Do You Have A Medical Power Of Metallurgist Helper? No Information not available 01/23/2023 What Was The Date Of Your Most Recent Tobacco Screening? 08/26/2024 Information not available 08/26/2024 What Is Your Current Pack Years? 20-29packye ars Information not available 01/23/2023 Do You Use Your Seat Belt Or Car Seat Routinely? Yes Information not available 01/23/2023 Are You Sexually Active? Yes [email or web address] Information not available 04/06/2023 Do You Have [...] Recorded Time Tdap 12/27/2015 completed Not Available [facility] 08/26/2024 12:26:48 COVID-19, mRNA, LNP-S, PF, 100 mcg/0.5mL dose or 50 mcg/0.25mL dose 10/14/2020 completed Not Available [facility] 12:26:48 COVID-19, mRNA, LNP-S, PF, 100 mcg/0.5mL dose or 50 mcg/0.25mL dose 11/11/2020 completed Not Available [facility] 12:26:48 Past Encounters Encounter ID Performer Location Encounter Start Date Encounter Closed Date Diagnosis/Indication Diagnosis SNOMED-CT Code Diagnosis ICD10 Code Diagnosis Note [id number] [place] [id number] 08/19/2024 16:32:11 08/19/2024 17:03:32 Acute low back pain 926114718 M54.50 Essential hypertension 09417310 I10 [id number] [place] [id number] 08/26/2024 12:26:34 08/26/2024 13:46:27 Essential hypertension 22507762 I10 Continue HCTZ, add lisinopril . DASh diet, stop smoking! Right uppe r quadrant pain 093922415 R10.11 Suspect gallbladde r dz as etiology. Obtain HIDA scan to evaluate GB function as she had a fairly normal CT. Avoid fatty and fried foods. Health Concerns Section Related Observation LastModified by Organization Detai ls LastModified Time None Recorded Concern Status LastModified by Organization Details LastModified Time None Recorded Payers Encounter Date Sequence Insurance Name Policy Number Policy Heard Covered Member ID Heard Member ID Guarantor Name 08/26/2024 1 [facility] [facility]AC[facility] - [place]) [place] Celena Garcia Alpesh [id number] Celena Alpesh Notes Date Note Type Note Provider Name and Address Organization Details Recorded Time 5 text/html Abdominal PainReported bypatient.Location:RUQ; epigastric; flank [...] no headache Celena was seen in the [facility] ER on 08/24/24 for persistent right flank [...] CXR was NEG. Antonia Driver APRN [address] [facility], [place], [address], [facility] [employer] 08/26/2024 14:22:47 OBGyn Episode No OBEpisode recorded.
--- OUTSIDE RECORDS SUMMARY | 2024-08-29 08:42 | XMS_ITS | Clinical Summary ---
Author Organization [facility] Address [address] [place] [address] Care Team Providers Care Bd Special Education Teacher Name Role Phone Antonia Driver YASMINE Primary Care Provider [phone] Social History Tobacco Use Types Packs/Day Years Used Date Smoking Tobacco: Never Assessed Abuse Screen Answer Date Recorded Unsafe at Home or Work/School Not on file Feels Threatened by Someone? Not on file Does Anyone Keep You from Co ntacting Others or Doint Things Outside the Home? Not on file 11/24/2022 Physical Sign of Abuse Present Not on file 1 Housing Stability Answer Date Recorded Current Living Arrangements Not on file 11/12 Potentially Unsafe Housing Conditions Not on dinesh e 11/24/2022 Family and Community Support Answer Jeffrey e Recorded Help with Day-to-Day Activities Not on file 11/24/2022 Lonely or Isolated Not on file 11/24/2022 Employment Answer Date Recorded Do you want help finding or keeping work or a calin b? Not on file 11/24/2022 Disabilities Answer Date Recorded Concentrating, Remembering, or Making Decisions Difficulty Not on file 11/24/2022 Doing Errands Independently Difficulty Not on fi le 11/24/2022 Education Answer Date Recorded Help with school or training? Not on file Preferred Language Not on file 11/24/2022 Comments Unknown Sex and Gender Information Value Date Recorded Sex Assigned at Not on file Legal Sex Female 4:54 PM EDT Gender Identity Not on file Sexual Orientation Not on file Plan of Treatment Health Maintenance Due Date Last Done Comments ANNUAL PHYSICAL 1979 Annual Gynecologic Pelvic an d Breast Exam 1980 HEPATITIS C SCREENING 1979 MAMMOGRAM 2019 COVID-19 Vaccine (3 - 2023-2 5 season) 2023 11/11/2020, 10/14/2020 COLOGUARD 01/25/2024 COLON CANCER SCREENING 5 YEA R SIGMOIDOSCOPY 01/25/2024 COLONOSCOPY 01/25/2024 COLORECTAL CANCER SCREENING 01/25/2024 CT COLONOGRAPHY 01/25/2024 FECAL OCCULT BLOOD TEST 01/25/2024 FIT Testing (1 year) 01/25/2024 INFLUENZA VACCINE 11/12/2024 TDAP/TD VACCINES (2 - Td or Tdap) 12/26/2025 12/27/2015 Pneumococcal Vaccine 0-49 Aged Out No longer eligible based on patient's age to complete this topic Care Teams Bd Special Education Teacher Relationship Specialty Start Date End Date Antonia Driver APRN [address] [place] [address] PCP - General Nurse Practitioner 02/12/22
--- OUTSIDE RECORDS SUMMARY | 2024-08-29 08:42 | XMS_ITS | Continuity of Care Document ---
Author Organization [facility] [employer] [facility] Address [address] [place] [phone] Assessment No assessment recorded. Plan of Treatment Reminders Order Date Submit Date Provider Last Modified By Organization Details Last Modified Time Details Appointments FOLLOW UP 30 2024 11:00A M Alin Driver APRN Not available Not available Not available Lab None recorded. Referral None recorded. Procedures None recorded. Surgeries None recorded. Imaging XR, knee, 3 view 2024 025 [facility], [address] [place] [address], [phone], 07/23/2024 16:58:07 Medication Orders diclofena c sodium 50 mg tablet,de layed release 2024 025 [facility], [address] [place] [address], [id number], 08/19/2024 17:07:52 Patient TargetsNo targets recorded. Patient Instructions Encounter Date Encounter Id Patient Instructions Last Modified By Organization Details Last Modified Time 07/23/2024 [id number] application of DONAL wrap* [email or web address] Not available 07/30/2024 09:49:29 Reason for Referral None Reported. Results Created Date Observation Date Name Description Value Unit Range Abnormal Flag Note LastModifiedBy Organization Detail LastModifiedTime 07/24/19 25 XR, knee, 3 view No observ ation record ed. [email or web address] [address], [phone], 07/23/2024 17:06:53 Result Notes None recorded. Problems Name Problem SNOMED Code Status Onset Date Resolution Date Notes Provider Name and Address Organization Details Recorded Time Generali zed anxiety disorder 37786355 Completed 201604/08/2020 Problem Code: F41.1; Problem Code Type: ICD-10; Not Available [facility] 22:15:25 Hyperten sive disorder 69995203 Completed 201604/08/2020 Problem Code: I10; Problem Code Type: ICD-10; Not Available [facility] 22:15:25 Low back pain 576630485 Completed 201602/07/2017 Problem Code: M54.5; Problem Code Type: ICD-10; Not Available [facility] 22:15:26 Pain in left lower limb 170603553 Completed 201602/07/2017 Not Available [facility] 22:15:26 Pain in limb 34608914 Completed 201602/07/2017 Problem Code: 729.5; Problem Code Type: ICD-9; Not Available [facility] 22:15:29 Breast lump 04767735 Completed 201602/07/2017 Problem Code: N63; Problem Code Type: ICD-10; Not Available [facility] 22:15:26 Polyp of cervix 13192784 Completed 201602/07/2017 Problem Code: N84.1; Problem Code Type: ICD-10; Not Available [facility] 22:15:26 Mucous polyp of cervix 28206633 Completed 201602/07/2017 Problem Code: 622.7; Problem Code Type: ICD-9; Not Available [facility] 22:15:29 Trichomo nal vulvovag initis 30227078 Completed 201605/06/2016 Problem Code: A59.01; Problem Code Type: ICD-10; Not Available [facility] 22:15:25 Low back pain 117376879 Completed 201602/07/2017 Problem Code: M54.5; Problem Code Type: ICD-10; Not Available [facility] 22:15:26 Prolapse d lumbar interver tebral disc 870133373 Completed 201604/08/2020 Problem Code: M51.26; Problem Code Type: ICD-10; Not Available [facility] 22:15:26 Infectio n by Trichomo darinel [id number] Completed 201605/06/2016 Problem Code: 131.9; Problem Code Type: ICD-9; Not Available [facility] 22:15:28 Non-supp urative otitis media 011273363 Completed 201602/07/2017 Not Available [facility] 22:15:25 Dizzines s and giddines s 673256278 Completed 201602/07/2017 Problem Code: R42; Problem Code Type: ICD-10; Not Available [facility] 22:15:27 Acute frontal sinusiti s 22517825 Completed 201608/26/2016 Problem Code: J01.10; Problem Code Type: ICD-10; Not Available [facility] 22:15:27 Pain of breast 09596117 Completed 201612/04/2016 Problem Code: 611.71; Problem Code Type: ICD-9; Not Available [facility] 22:15:29 Left upper quadrant pain 263995585 Completed 201612/04/2016 Problem Code: R10.12; Problem Code Type: ICD-10; Not Available [facility] 22:15:29 Viral enteriti s of intestin e 19358118 Completed 201602/25/2017 Problem Code: A08.4; Problem Code Type: ICD-10; Not Available [facility] 22:15:25 Nausea and vomiting 05915479 Completed 201601/10/2017 Problem Code: R11.2; Problem Code Type: ICD-10; Not Available [facility] 22:15:27 Intestin al infectio us disease 269322309 Completed 201602/25/2017 Problem Code: 008.8; Problem Code Type: ICD-9; Not Available [facility] 22:15:28 Influenz a 5529771 Completed 201604/08/2017 Problem Code: J10.1; Problem Code Type: ICD-10; Not Available [facility] 22:15:25 Cough 77327755 Completed 201602/21/2017 Problem Code: R05; Problem Code Type: ICD-10; Not Available [facility] 22:15:27 Influenz a with respirat ory manifest ation other than pneumoni a Completed 201604/08/2017 Problem Code: 487.1; Problem Code Type: ICD-9; Not Available [facility] 22:15:29 Breast lump 60730061 Completed 201704/08/2020 Problem Code: N63; Problem Code Type: ICD-10; Not Available [facility] 22:15:26 Median nerve entrapme nt 248468951 Completed 201804/08/2020 Not Available [facility] 22:15:25 Sprain of radiocar pal ligament 642504805 Completed 201804/08/2020 Not Available [facility] 22:15:27 Nicotine dependen ce 23654654 Active 2020 Problem Code: F17.200; Problem Code Type: ICD-10; Not Available [facility] 22:15:25 Urinary tract infectio us disease 43786836 Active 2020 Problem Code: N39.0; Problem Code Type: ICD-10; Not Available [facility] 22:15:26 Dysuria 79830022 Active 2020 Problem Code: R30.0; Problem Code Type: ICD-10; Not Available [facility] 22:15:27 Exposure to SARS-CoV -2 Completed 202005/16/2021 Problem Code: Z20.822; Problem Code Type: ICD-10; Not Available [facility] 22:15:27 Tobacco dependen ce caused by cigarett es [id number] 493078 Active 2021 Problem Code: F17.210; Problem Code Type: ICD-10; Not Available [facility] 22:15:25 Premenop ausal menorrha ailyn Active 2021 Not Available [facility] 22:15:26 Body mass index 25-29 - overweig ht 717137413 Active 2021 Problem Code: Z68.28; Problem Code Type: ICD-10; Not Available [facility] 22:15:28 Acute low back pain 741144776 Active 2024 Antonia Driver APRN [address], [place], [address] [place] [address] , [employer] 16:56:57 [facility] hyper[facility] chad 50262563 Active 2024 Antonia Driver APRN [address], [place], [address] [place] [address] , [employer] 16:57:45 Divertic ulitis of intestin e 915033376 Active 2024 Antonia Driver APRN [address], [place], [address] [place] [address] , [employer] 13:19:47 Right upper quadrant pain 307603054 Active 2024 Antonia Driver APRN [address], [place], [address] [place] [address] , [employer] 13:29:14 Problem Notes None recorded. Procedures Surgical History Date Name Laterality Status Provider Name and Address Organization Details Recorded Time 05/30/19 24 Colposcopy cancelled GL[facility]YS SH[facility] [employer] 05/24/2023 16:12:44 04/20/19 24 IUD Insertion completed Leonardo Del Angel CNM [address] [place], [address], [employer] 04/20/2023 15:21:58 04/20/19 Date of Last Pap Smear completed GLENYS SH[facility] [employer] 05/04/2023 13:56:27 appendectomy completed [facility] [employer] 04/06/2023 13:02:17 Removal of ovarian cyst(s) completed [employer] 04/06/2023 13:02:26 Imaging Results None recorded. Procedure [...] Not Available Not Available Not Available dextrometho roxyhan-abnerf enesin 10 mg-100 mg/5 mL oral syrup [...] Not Available Not Avai lable amoxicillin 875 mg-alyce bernal clavulanate 125 mg tablet Take 1 tablet [...] Address Organization Details Last Updated DateTime 5 30542.0 5 g 98 [degF] 71 /min 97 % 97 % 202/102 mm[Hg] 183/101 mm[Hg] 161/73 mm[Hg] [facility] [employer] 5 14:03:00 Social History Question Answer Notes LastModified by Organizat ion Details LastModified Time Tobacco Smoking Status Current Every Day Smoker SocialHistor yQuestion: 'Tobacco/Alc ohol/Supplem ents'; SocialHistor yResponse: 'Current Everyday Smoker'; Not Available [facility] 10/18/2021 22:58:54 Do You Have An Advance [...] Do You Have A Medical Power Of Mortgage Closer? No Information not available 01/23/2023 What Was The Date Of Your Most Recent Tobacco Screening? 08/26/2024 Information not available 08/26/2024 What Is Your Current Pack Years? 20-29packye ars Information not available 01/23/2023 Do You Use Your Seat Belt Or Car Seat Routinely? Yes Information not available 01/23/2023 Are You Sexually Active? Yes Information not available 04/06/2023 Do You Have [...] Recorded Time Tdap 12/27/2015 completed Not Available [facility] 08/26/2024 12:26:48 COVID-19, mRNA, LNP-S, PF, 100 mcg/0.5mL dose or 50 mcg/0.25mL dose 10/14/2020 completed Not Available [facility] 12:26:48 COVID-19, mRNA, LNP-S, PF, 100 mcg/0.5mL dose or 50 mcg/0.25mL dose 11/11/2020 completed Not Available [facility] 12:26:48 Past Encounters Encounter ID Performer Location Encounter Start Date Encounter Closed Date Diagnosis/Indication Diagnosis SNOMED-CT Code Diagnosis ICD10 Code Diagnosis Note [id number] Antonia Driver APRN [address] [phone] 07/23/2024 13:32:24 07/23/2024 15:10:37 Pain of knee region 5600351575 M25.562 Sprain of medial collateral ligament of left knee joint [id number] 1599972 S83.412A RICE, donal wrap applied, limited weight bearing. RTC for failure to improve with conservati ve tx in 1 week. Health Concerns Section Related Observation LastModified by Organization Detai ls LastModified Time None Recorded Concern Status LastModified by Organization Details LastModified Time None Recorded Payers Encounter Date Sequence Insurance Name Policy Number Policy Heard Covered Member ID Heard Member ID Guarantor Name 07/23/2024 1 [facility] (MEDICAID REPLACEMENT - HMO) [id number] Celena Garcia Alpesh [id number] Celena Betts Notes Date Note Type Note Provider Name and Address Organization Details Recorded Time 07/23/2024 text/html KneeReported bypatient.Location :left; anterior; medial Quality:burning Severity:mild Duration:5 days Timing:acute [...] Work Related:no Working:regular duty Antonia Driver APRN [address] [place] [address], [phone], [facility] [employer] 07/27/2024 19:28:53 OBGyn Episode No OBEpisode recorded.
--- NOTE | 2024-08-29 09:34 | US_ITS ---
FINAL REPORT CLINICAL HISTORY: RUQ PAIN -- check for gallstones COMPARISON: None FINDINGS: Sonographic images of the right upper quadrant were obtained. The pancreas is partially obscured.The liver has an unremarkable appearance.The gallbladder appears normal without evidence of gallstones.There is no evidence of biliary ductal dilatation. The common duct measures 4 mm. Limited images of the right kidney are unremarkable. IMPRESSION: Unremarkable right upper quadrant ultrasound. Reviewed, Interpreted and Dictated by Darlin Santos MD Transcribed by Britany Mcgill Authenticated and [facility]
[2024-08-29] MEDS: ISOTOPE CHOLETECH;1 DOSE (UP TO 15 MCI) IV (11:10)
[2024-08-29] MEDS: SINCALIDE 1.7 MCG in 0.9 % SODIUM CHLORIDE 50 ML 100 MCG IV (11:10)
[2024-08-29] MEDS: SODIUM CHLORIDE 0.9% 10ML SYR (RAD ONLY) 10 ML IV (11:11)
== END 2024-08-29 23:59 | disposition home or self-care (01) ==
LOC: RAD 08:40
PROVIDERS: PCP Nurse Practitioner Family; Visit Provider Nurse Practitioner Family
DX: R10.11 Right upper quadrant pain (principal)
CPT/HCPCS: 76705; 78227; A9537; J2805

== ENCOUNTER 2024-10-20 12:31 | Day surgery (SDC) | payer OTHER, SELFPAY ==
--- NOTE | 2024-10-16 13:10 | EXP.HP ---
History of Present Illness *Admission Date: 10/20/24 *History of present illness: Mrs. Betts is a 44-year-old female who is here for diagnostic EGD. She states that she has developed epigastric abdominal pain that radiates into the right side. This all got significantly worse on August 19, 2024. She does state that this pain occurs immediately postprandially within 2 or 3 minutes. She has been to the emergency department in [facility] and had CAT scans, x-rays and lab work. This was all interpreted as normal except for her leukocytosis. She was given antibiotics. She subsequently had ultrasound of the gallbladder and HIDA scan on 08/29/2024. Her ultrasound of the right upper quadrant was unremarkable with the gallbladder appearing normal without gallstones. There was no gallbladder wall thickening, pericholecystic fluid or distended gallbladder. The common bile duct was 4 mm. Her subsequent HIDA scan showed an ejection fraction of 93%. She did see general surgery (Moises Izaguirre MD) who referred her here. The patient has developed some constipation over the last year and will go 3 to 4 days without a bowel movement. She does have a lot of gassiness, bloating and belching. She also reports early satiety. She reports no nausea or vomiting. She does state that she often cannot sit up straight. She was given dicyclomine which does not help. She is not on any PPI. She does get occasional heartburn and reflux at nighttime. She has never had EGD or colonoscopy. [facility] Disclaimer: The information contained in this section may have been updated after the patient was seen, as this information can be updated by other users. Medical History No significant medical problems Surgical History History of elbow surgery History of appendectomy Family History (Updated 10/20/24 @ 12:53 by Everett Cordero RN) Other Family history of diabetes mellitus Family history of hypertension Social History (Updated 10/20/24 @ 12:54 by Everett Cordero RN) Smoking Status: Current every day smoker alcohol intake: never substance use type: denies use current occupational status: employed Travel in the last 8 weeks?: None Have you lived/traveled outside US in past 30 days?: No Contact w/someone who lives/traveled outside US past 30 days?: No Exposure to someone with infectious disease in past 14 days?: No Do you have a fever (greater than 100.4 F or 38 C)?: No Have you tested positive for COVID-19?: No Exposed to someone with COVID-19 in past 14 days?: No Do you have a sore throat?: No Do you have a cough?: No Do you have any weakness?: No Are you experiencing any nausea/vomitting?: No Do you have any diarrhea?: No Are you experiencing any unusual bleeding?: No Do you have any muscle aches/pain?: No Do you have any abdominal pain?: No Are you experiencing loss of taste or smell?: No Review of Systems Review of Systems Review of systems (narrative): Negative *Cardiovascular Comments: Negative *Gastrointestinal Comments: Negative *Genitourinary Comments: Negative *Musculoskeletal Comments: Negative *Neurologic Comments: Negative Meds Home Medications and Allergies Home Medications ?Medication ?Instructions ?Recorded ?Confirmed ?Type No Known Home Medications 10/20/24 10/20/24 History New Prescriptions to Start Prescriptions: Allergies Allergy/AdvReac Type Severity Reaction Status Date / Time No Known Allergies Allergy Verified 10/20/24 12:51 Exam *Routine HEENT Exam Head: Present normocephalic Eye: Present EOMI and PERRL ENT: Present mucous membranes moist *Routine Neck Exam Neck: Present supple *Routine Respiratory Exam Respiratory: Present CTA bilaterally *Routine Cardiovascular Exam Cardiovascular: Present RRR *Routine Abdominal Exam Abdominal: Present soft and normoactive bowel sounds; Absent tenderness *Routine Rectal Exam Rectal:: deferred *Routine Genitalia Exam Genitalia:: deferred *Routine Extremities Exam Extremities: Absent cyanosis, clubbing or edema *Routine Skin Exam Skin: Present warm; Absent rash *Routine Neurological Exam Neurological: Present alert and oriented X3 Assessment and Plan *Assessment and plan (1) Epigastric pain: Status: Acute Category: Medical Code(s): R10.13 - Epigastric pain (2) Right upper quadrant abdominal pain: Status: Acute Category: Medical Code(s): R10.11 - Right upper quadrant pain (3) Bloating: Status: Acute Category: Medical Code(s): R14.0 - Abdominal distension (gaseous) (4) Belching: Status: Acute Category: Medical Code(s): R14.2 - Eructation (5) Early satiety: Status: Acute Category: Medical Code(s): R68.81 - Early satiety Plan A/P: 1. Epigastric abdominal pain with belching, bloating and fullness/early satiety is the preprocedural diagnosis. The patient will be anesthetized/sedated using MAC sedation. The patient has been seen and examined. Cardiac and lung assessment prior to the examination is stable. Proceed with planned diagnostic EGD.
[2024-10-20 12:40] VITALS: BMI 30.7
[2024-10-20] MEDS: LACTATED RINGERS 1000ML 1,000 ML 50 ML IV (12:48)
[2024-10-20 12:50] LABS: Urine Pregnancy, HCG Qual. Negative (Negative)
[2024-10-20 12:54] VITALS: BP 136/77; PULSE 81; RESP 18; TEMP 36.2; O2SAT 98
--- NOTE | 2024-10-20 13:53 | P.PNANES_ITS ---
[facility] Disclaimer: The information contained in this section may have been updated after the patient was seen, as this information can be updated by other users. Medical History No significant medical problems Surgical History History of elbow surgery History of appendectomy Family History (Updated 10/20/24 @ 12:53 by Everett Cordero RN) Other Family history of diabetes mellitus Family history of hypertension Social History (Updated 10/20/24 @ 12:54 by Everett Cordero RN) Smoking Status: Current every day smoker alcohol intake: never substance use type: denies use current occupational status: employed Travel in the last 8 weeks?: None Have you lived/traveled outside US in past 30 days?: No Contact w/someone who lives/traveled outside US past 30 days?: No Exposure to someone with infectious disease in past 14 days?: No Do you have a fever (greater than 100.4 F or 38 C)?: No Have you tested positive for COVID-19?: No Exposed to someone with COVID-19 in past 14 days?: No Do you have a sore throat?: No Do you have a cough?: No Do you have any weakness?: No Are you experiencing any nausea/vomitting?: No Do you have any diarrhea?: No Are you experiencing any unusual bleeding?: No Do you have any muscle aches/pain?: No Do you have any abdominal pain?: No Are you experiencing loss of taste or smell?: No [facility] Anesthesia Checklist Patient Identification Patient Identification: Arm Band and Verbal (Name & ) Structural Data Admitted From: Home Planned Operative Procedure/s: EGD Consent for Planned Operative Procedure(s) Verified: Yes Verified Documents: Surgical Consent NPO Status Verified Time NPO: 00:00 Additional verifications Anesthesia Reactions: No Hx Blood Transfusions: No Blood Transfusion Reaction: No Airway Assessment Mallampati Score:: Class II C-Spine Mobility Assessed: Yes TMJ Mobility Assessed: Yes Dentition: Dentures-good fit Neurological Assessment Level of Consciousness: Awake, Alert and Appropriate Hx Seizures: No Numbness or tingling in extremities: No Anesthesia Plan Anesthesia Risk discussed: Yes Anesthesia Plan: Verified ASA Class: II Anesthesia Type: MAC
--- NOTE | 2024-10-20 14:07 | P.PCN_ITS ---
[facility] Procedure Note Date: 10/20/24 Time: 14:27 Procedure Note:: Upper Endoscopy Procedure Report: Esophagogastroduodenoscopy with cold biopsies Endoscopost: Ángel Araujo II, MD Referring Physician: GARCIA Conner Date of Procedure: October 20, 2024 Equipment: Olympus GIF-1100 standard upper endoscope Sedation: MAC sedation Indications: Mrs. Betts is a 44-year-old female who is here for diagnostic EGD. She states that she has developed epigastric abdominal pain that radiates into the right side. This all got significantly worse on August 19, 2024. She does state that this pain occurs immediately postprandially within 2 or 3 minutes. She has been to the emergency department in [facility] and had CAT scans, x- rays and lab work. This was all interpreted as normal except for her leukocytosis. She was given antibiotics. She subsequently had ultrasound of the gallbladder and HIDA scan on 08/29/2024. Her ultrasound of the right upper quadrant was unremarkable with the gallbladder appearing normal without gallstones. There was no gallbladder wall thickening, pericholecystic fluid or distended gallbladder. The common bile duct was 4 mm. Her subsequent HIDA scan showed an ejection fraction of 93%. She did see general surgery (Moises Izaguirre MD) who referred her here. The patient has developed some constipation over the last year and will go 3 to 4 days without a bowel movement. She does have a lot of gassiness, bloating and belching. She also reports early satiety. She reports no nausea or vomiting. She does state that she often cannot sit up straight. She was given dicyclomine which does not help. She is not on any PPI. She does get occasional heartburn and reflux at nighttime. She has never had EGD (or colonoscopy). Procedure: Prior to the procedure, a history and physical exam was performed, and patient's medications and allergies were reviewed. The risks, benefits and alternatives of the sedation and procedure were discussed with the patient. All questions were answered and informed consent was obtained. The patient was brought to the procedure room. Patient identification and proposed procedure were verified by the physician and the nurse. The patient was placed in a left lateral decubitus position and the scope was passed under direct vision. Throughout the procedure, the patient's blood pressure, pulse, and oxygen saturations were monitored continuously. The upper GI endoscopy was accomplished without difficulty. The patient tolerated the procedure well. Findings: The scope was passed directly into the upper esophagus and advanced to the third portion of the duodenum. There was a duodenal diverticulum in the third portion of the duodenum. A cold biopsy was taken from the second portion of the duodenum for the disaccharidase assay. The remainder of the post bulbar duodenum, ampulla and duodenal bulb were normal with normal mucosa and conniventes. The scope was withdrawn through a normal duodenal bulb and pylorus into the stomach. There was some linear reactive gastropathy of the antrum. The body and fundus were normal. Upon retroflexion there was a small 1 to 2 cm hiatal hernia. Cold biopsies were taken from the incisura.. The scope was then withdrawn into the esophagus. There was no evidence of reflux esophagitis or Givens's. There was whitish-yellow plaque in the mid and distal esophagus consistent with mild esophageal candidiasis. Cold biopsies were taken from the midesophagus for confirmation. The remainder of the esophageal mucosa was normal. Impression: 1. Mild candidal esophagitis 2. Nonerosive GERD with mild esophageal dysmotility and small 1 to 2 cm hiatal hernia 3. Mild linear reactive gastropathy of antrum 4. Duodenal diverticulum (third portion) Plan: I will follow-up the biopsies and disaccharidase assay. Today, we will discuss additional treatment options. I would recommend colonoscopy as well.
[2024-10-20 14:29] VITALS: BP 115/63; PULSE 80; RESP 17; TEMP 36.2; O2SAT 94
[2024-10-20 14:39] VITALS: BP 112/74; PULSE 71; RESP 17; TEMP 36.2; O2SAT 98
[2024-10-20 14:49] VITALS: BP 119/77; PULSE 70; RESP 18; TEMP 36.2; O2SAT 99
[2024-10-20 14:59] VITALS: BP 127/69; PULSE 75; RESP 18; TEMP 36.2; O2SAT 99
[2024-10-24 09:21] LABS: Interpretation Notes (.); Lactase 3.16 (>/= 14.0); Maltase 35.23 (>/= 110.0); Palatinase 2.03 (>/= 8.5); Reference Notes (.); Sucrase 4.06 (>/= 25.0)
== END 2024-10-20 15:07 | disposition home or self-care (01) ==
PROVIDERS: PCP Nurse Practitioner Family; Visit Provider Internal Medicine Gastroenterology
PROC: 0DJ08ZZ Inspection of Upper Intestinal Tract, Via Natural or Artificial Opening Endoscopic (ICD-10-PCS; CPT 43239; principal; 2024-10-20 14:00)
DX: K29.50 Unspecified chronic gastritis without bleeding (principal); B96.81 Helicobacter pylori [H. pylori] as the cause of diseases classified elsewhere; K20.80 Other esophagitis without bleeding; R68.81 Early satiety; K30 Functional dyspepsia; K57.10 Diverticulosis of small intestine without perforation or abscess without bleeding; K58.1 Irritable bowel syndrome with constipation; K44.9 Diaphragmatic hernia without obstruction or gangrene; K31.89 Other diseases of stomach and duodenum; F17.200 Nicotine dependence, unspecified, uncomplicated; Z90.49 Acquired absence of other specified parts of digestive tract; Z79.899 Other long term (current) drug therapy
CPT/HCPCS: 43239; 81025; 82657; J2003; J2704; J7120

== ENCOUNTER 2024-11-05 20:23 | Emergency (ER) | payer OTHER, SELFPAY ==
[2024-11-05 20:35] VITALS: BP 182/90; PULSE 86; RESP 20; TEMP 36.8; O2SAT 97; BMI 30.7
--- OUTSIDE RECORDS SUMMARY | 2024-11-05 20:52 | XMS_ITS | Clinical Summary ---
Author Organization Healthcare Address [address] [place] [address] Care Team Providers Care Labor Service Representative Name Role Phone Gricelda Dobbs APRN Primary Care Provider [phone] Social History Tobacco Use Types Packs/Day Years [...] of Treatment Not on file Care Teams Labor Service Representative Relationship Specialty Start Date End Date Gricelda Dobbs APRN [address] [place], [place] [id number] PCP - General 06/25/20
--- OUTSIDE RECORDS SUMMARY | 2024-11-05 20:52 | XMS_ITS | Clinical Summary ---
Author Organization [facility] Address [address] [place] [address] Care Team Providers Care Locker Attendant Name Role Phone Antonia Driver REPAIR ARMATURE WINDER HELPER Primary Care Provider [phone] Social History Tobacco Use Types Packs/Day Years [...] Orientation Not on file Plan of Treatment Upcoming Encounters Date Type Department Care Team (Late st Contact Info) Description 11/06/2024 2:00 PM EDT Appointment [facility] [address] [place] [address] Health Maintenance Due Date Last Done Comments ANNUAL PHYSICAL 1979 Annual Gynecologic Pelvic an d Breast Exam 1979 HEPATITIS C SCREENING 1979 MAMMOGRAM 2019 COLOGUARD 01/25/2024 COLON CANCER SCREENING 5 YEA R SIGMOIDOSCOPY 01/25/2024 COLONOSCOPY 01/25/2024 COLORECTAL CANCER SCREENING 01/25/2024 CT COLONOGRAPHY 01/25/2024 FECAL OCCULT BLOOD TEST 01/25/2024 FIT Testing (1 year) 01/25/2024 INFLUENZA VACCINE 09/12/2024 TDAP/TD VACCINES (2 - Td or Tdap) 12/26/2025 016 Pneumococcal Vaccine 0-49 Aged Out No longer eligible based on patient's age to complete this topic Insurance Care Teams Locker Attendant Relationship Specialty Start Date End Date Antonia Driver APRN [address] [place] [address] PCP - General Nurse Practitioner 02/12/22
[2024-11-05 20:56] LABS: Hematocrit 49.1 % (37.0-47.0); Hemoglobin 16.8 g/dL (12.2-16.2); Immature Granulocytes % 0.4 %; Mean Corpuscular HGB Conc 34.2 g/dL (31.8-35.4); Mean Corpuscular Hemoglobin 30.7 pg (27.0-31.2); Mean Corpuscular Volume 89.6 fl (81-99); Nucleated Red Blood Cells % 0 %; Platelet Count 366 K/mm3 (142-424); Red Blood Count 5.48 M/mm3 (4.20-5.40); Red Cell Distribution Width-SD 43.8 fL; White Blood Count 16.9 K/mm3 (4.8-10.8)
--- NOTE | 2024-11-05 20:58 | HMH.EDGENADL ---
Discharge Plan Disposition Patient Disposition: Home, Self-Care Condition: Good Prescriptions Prescriptions: New dicyclomine 20 mg tablet 20 mg PO BID Qty: 20 0RF No Action fluconazole 50 mg tablet 50 mg PO DAILY Qty: 7 0RF Rx Instructions: Please take 1 tablet by mouth daily for 7 days bismuth subcit [id number] [Pylera] 140-125-125 mg capsule 3 cap PO .4 times daily Qty: 120 0RF Rx Instructions: Please take 3 capsules by mouth 4 times daily x 10 days Sucraid 8,500 unit/mL solution 2 ml PO 6XD Qty: 360 12RF Rx Instructions: 2mL by mouth with meals/snacks up to 6XD Linzess 290 mcg capsule 290 mcg PO DAILY Qty: 30 12RF Rx Instructions: Please take 1 capsule by mouth every morning 30 to 60 minutes prior to breakfast or on an empty stomach buspirone 10 mg tablet 10 mg PO BID Qty: 60 12RF Rx Instructions: Please take 1 tablet by mouth p.o. nightly x 5 to 7 days and then 1 tablet p.o. twice daily thereafter Referrals Follow up/Referrals: Antonia Driver [Primary Care Provider, Medical] - See instructions Activity Restrictions/Add. Instructions Additional Instructions/Restrictions: Can take Tylenol and Motrin as needed in addition to the Bentyl for your symptoms. Continue taking the medications that were prescribed by GI. Call GI to let them know you are continuing to have abdominal pain since the endoscopy. Return to the emergency department for any acute or worsening symptoms Clinical Impressions Clinical Impression: Abdominal pain Instructions Patient Instructions: DI for Acute Abdominal Pain Print Language Print Language: Italian Discharge ED Provider: Daniela Ellis Adult HPI General Chief complaint: Abdominal Pain Stated complaint: abdominal pain for months, vomitting Time Seen by Provider: 11/05/24 20:58 Mode of Arrival: Ambulatory Source of Information: Patient Description of Symptoms (Recalled from ER Triage Doc. by RN): patient presents to the ED for severe stomach pain. patient rates the pain 10/10. patient recently had an EGD done by Dr Araujo 10/20/24. patient stated that she has only had 3 bowel movements in the last 3 weeks, recent one being 3 days ago. History of Present Illness HPI narrative: Patient is an otherwise healthy 44-year-old female whose had significant abdominal pain for several months recently seen by Dr. Araujo on the eighth for endoscopy. Patient states that she was discharged with Linzess and other medications for her belly pain. Patient states that she has very infrequent bowel movements. Patient states that she had a bowel movement a couple days ago. Patient still passing gas. Patient has had abdominal pain since the endoscopy got worse today. Patient has intermittent vomiting. Patient has not had any shortness of breath chest pain or fevers. Patient denies any neurologic symptoms including headache vision changes numbness or weakness. Related Data Previous Rx's ?Medication ?Instructions ?Recorded buspirone 10 mg tablet 10 mg PO BID #60 tabs 10/20/24 linaclotide 290 mcg capsule 290 mcg PO DAILY #30 caps 10/20/24 (Linzess) bismuth subcit K 140 3 cap PO .4 times daily #120 caps 10/25/24 mg-metronidazole 125 mg-tetracycline 125 mg cap (Pylera) fluconazole 50 mg tablet 50 mg PO DAILY #7 tabs 10/25/24 sacrosidase 8,500 unit/mL oral 2 ml PO 6XD #360 mL 10/27/24 solution (Sucraid) dicyclomine 20 mg tablet 20 mg PO BID #20 tabs 11/05/24 Allergies Allergy/AdvReac Type Severity Reaction Status Date / Time No Known Allergies Allergy Verified 10/20/24 12:51 [facility] Disclaimer: The information contained in this section may have been updated after the patient was seen, as this information can be updated by other users. Medical History No significant medical problems Surgical History History of elbow surgery History of appendectomy Family History (Updated 10/20/24 @ 12:53 by Everett Cordero RN) Other Family history of diabetes mellitus Family history of hypertension Social History (Updated 10/20/24 @ 12:54 by Everett Cordero RN) Smoking Status: Current every day smoker alcohol intake: never substance use type: denies use current occupational status: employed Travel in the last 8 weeks?: None Have you lived/traveled outside US in past 30 days?: No Contact w/someone who lives/traveled outside US past 30 days?: No Exposure to someone with infectious disease in past 14 days?: No Do you have a fever (greater than 100.4 F or 38 C)?: No Have you tested positive for COVID-19?: No Exposed to someone with COVID-19 in past 14 days?: No Do you have a sore throat?: No Do you have a cough?: No Do you have any weakness?: No Do you have any diarrhea?: No Are you experiencing any unusual bleeding?: No Do you have any muscle aches/pain?: No Do you have any abdominal pain?: No Are you experiencing loss of taste or smell?: No ROS Obtained: Yes All systems reviewed & no additional complaints except as documented and Yes Systems reviewed as appropriate & no additional complaints except as documented Physical Exam General General appearance: alert and in no apparent distress Head Head exam: atraumatic, normocephalic and normal inspection Eye Eye exam: Present normal appearance, PERRL and EOMI; Absent scleral icterus ENT ENT exam: Present normal exam and normal external ear exam Neck Neck exam: Present normal inspection and full ROM Chest Chest inspection: Present normal inspection and symmetric chest wall rise Respiratory Respiratory exam: Present normal lung sounds bilaterally; Absent respiratory distress or wheezes Cardiovascular Cardiovascular exam: Present regular rate, normal rhythm and normal heart sounds Abdominal Exam Abdominal exam: Present soft, distention and tenderness (diffuse); Absent guarding or rebound Extremities Exam Extremities exam: Present normal inspection and full ROM Back Exam Back exam: Present normal inspection and full ROM Neurological Exam Neurological exam: Present alert and oriented X3 Psychiatric Psychiatric exam: Present normal affect and normal mood Skin Skin exam: Present warm and dry Medical Decision Making Medical Records Medical records reviewed: Yes I reviewed the patient's medical records. Screening: Per USPSTF and CDC recommendations, given the prevalence of disease in our region, it is our hospital?s policy to screen for HIV and viral Hepatitis for all patients aged 18 and over and those with ongoing risk factors. Marcial Inquiry Pt receiving controlled substance: No Vital Signs: 11/05/24 20:35 11/05/24 23:55 Temperature 98.2 F 98.7 F Temperature Source Temporal Artery Scan Pulse Rate 79 Pulse Rate [Right Radial] 86 Respiratory Rate 20 18 Blood Pressure 111/75 Blood Pressure [Right Arm] 182/90 H Blood Pressure Mean [Right Arm] 120 Blood Pressure Source [Right Arm] Automatic Cuff Blood Pressure Position [Right Arm] Sitting 02 Sat by Pulse Oximetry 97 Oxygen Delivery Method Room Air Room Air Lab Data Lab results reviewed: Yes I reviewed the patient's lab results. Lab Results 11/05/24 20:47: WBC 16.9 H, RBC 5.48 H, Hgb 16.8 H, Hct 49.1 H, MCV 89.6, MCH 30.7, MCHC 34.2, RDW 13.3, Plt Count 366, MPV 9.5, Neut % (Auto) 76.9, Lymph % (Auto) 16.6, Mcpherson % (Auto) 4.3, Eos % (Auto) 1.3, Baso % (Auto) 0.5, Neut # (Auto) 13.0 H, Lymph # (Auto) 2.8, Mcpherson # (Auto) 0.7, Eos # (Auto) 0.2, Baso # (Auto) 0.1, Sodium 136, Potassium 4.8, Chloride 102, Carbon Dioxide 24, Anion Gap 14.8, BUN 7, Creatinine 0.70, Estimated Creat Clear 138, Estimated GFR 90, Est GFR ( Amer) 109, Glucose 118 H, Lactate 0.7, Calcium 9.5, Total Bilirubin 0.8, AST 44 H, ALT 31, Alkaline Phosphatase 87, Troponin I < 0.01, Total Protein 8.8 H, Albumin 4.8, Globulin 4.0 H, Albumin/Globulin Ratio 1.2, Lipase 103 11/05/24 20:51: Urine Color Yellow, Urine Appearance Clear, Urine pH 6.5, Ur Specific Madison 1.010, Urine Protein Negative, Urine Glucose (UA) Negative, Urine Ketones Negative, Urine Blood Negative, Urine Nitrate Negative, Urine Bilirubin Negative, Urine Urobilinogen 0.2, Ur Leukocyte Esterase Negative, Urine WBC 3-5, Ur Squamous Epith Cells 20-50, Urine Bacteria Trace 11/05/24 20:47 11/05/24 20:47 Orders (Tests/Meds): ED MEDICATIONS Discontinued Medications Generic Name Dose Route Start Last Admin Trade Name Freq PRN Reason Stop Dose Admin Iopamidol 80 ml 11/05/24 21:56 11/05/24 21:57 Iopamidol-370 (76%);100ml Bottle IV 11/05/24 21:57 80 ml ONCE ONE Administration Morphine Sulfate 4 mg 11/05/24 21:17 11/05/24 21:37 Morphine 2mg/Ml Syringe IV 11/05/24 21:18 4 mg ONCE ONE Administration Ondansetron HCl 4 mg 11/05/24 21:17 11/05/24 21:37 Ondansetron 4mg/2ml Vial IV 11/05/24 21:18 4 mg ONCE ONE Administration Sodium Chloride 10 ml 11/05/24 21:56 11/05/24 21:57 Sodium Chloride 0.9% 10ml Syr (Rad Only) IV 11/05/24 21:57 10 ml ONCE ONE Administration ORDERS Category Date Time Status CT angio abdomen pelvis Stat Cat Scan 11/05/24 21:15 Completed CXR --portable [XR chest portable] Stat Exams 11/05/24 21:18 Completed Complete Blood Count Auto Diff Stat Lab 11/05/24 20:47 Completed Comprehensive Metabolic Panel Stat Lab 11/05/24 20:47 Completed Lactic Acid Stat Lab 11/05/24 20:47 Completed Lipase Stat Lab 11/05/24 20:47 Completed Troponin I Stat Lab 11/05/24 20:47 Completed Urinalysis and Microscopic Stat Lab 11/05/24 20:51 Completed Medical Decision Narrative: Patient is an otherwise healthy 44-year-old female who presents to the emergency department with abdominal pain. Patient recently had an endoscopy with Dr. Araujo on the . Patient arrived hemodynamically stable with unremarkable vital signs. Differential includes but not limited to: Functional abdominal pain, chronic abdominal pain, IBD, Crohn's disease, intra-abdominal abscess, intra-abdominal perforation, amongst others. Labs were reviewed and interpreted by myself: CBC showed no leukocytosis, hemoglobin was stable. CMP was unremarkable. Lipase was normal. test was negative. CT scan of the abdomen showed no acute pathology. Patient was given pain medications in the emergency department and patient had improvement of her symptoms. At this time, given unremarkable workup I felt the patient was appropriate for discharge home. Patient already has follow-up with GI. Patient was sent home with medications with GI. I recommended patient to continue taking these. Patient was otherwise discharged in stable condition return precautions were discussed. Critical Care Critical Care Time Critical Care Time: No
[2024-11-05 21:00] LABS: Chloride 102 mmol/L (98-107)
[2024-11-05 21:01] LABS: Albumin Level 4.8 g/dl (3.5-5.0); Potassium 4.8 mmoL/L (3.5-5.1); Sodium 136 mmol/L (136-145)
[2024-11-05 21:03] LABS: Alanine Aminotransferase 31 U/L (12-78); Anion Gap 14.8 mEq/L (5-15); Aspartate Amino Transferase 44 U/L (14-36); Blood Urea Nitrogen 7 mg/dl (7-17); Carbon Dioxide 24 mmol/L (22.0-30.0); Creatinine Clearance Estimated 138 mL/min (50-200); Creatinine,Serum 0.70 mg/dl (0.52-1.04); Estimated Glomerular Filt Rate 90 ml/min (>60); GFR (African American) 109 ML/MIN (>60)
[2024-11-05 21:04] LABS: Albumin/Globulin Ratio 1.2 (1.1-1.8); Alkaline Phosphatase 87 U/L (38-126); Bilirubin,Total 0.8 mg/dl (0.2-1.3); Calcium 9.5 mg/dl (8.4-10.2); Globulin 4.0 g/dL (1.3-3.2); Glucose 118 mg/dl (74-100); Total Protein,Serum 8.8 g/dl (6.3-8.2)
[2024-11-05 21:05] LABS: Microscopic, Urine URINE MICROSCOPIC (MICROSCOPIC)
[2024-11-05 21:11] LABS: Bilirubin,Urine Negative (Negative); Color,Urine YELLOW (Yellow); Glucose,Urine (UA) Negative (Negative); Ketones,Urine Negative (Negative); Leukocyte Esterase,Urine Negative (Negative); PH,Urine 6.5 (5.0-8.5); Protein,Urine Negative (Negative); Specific Gravity, Urine 1.010 (1.005-1.030); Urobilinogen,Urine 0.2 EU/dl (0.2)
[2024-11-05 21:15] LABS: Lipase 103 U/L (23-300)
--- NOTE | 2024-11-05 21:15 | CT_ITS ---
PROCEDURE INFORMATION: Exam: CTA Abdomen and Pelvis With Contrast Exam date and time: 11/05/2024 9:59 PM Age: 44 years old Clinical indication: Abdominal pain; Generalized; Additional info: Abdominal pain, endoscopy 10/20 TECHNIQUE: Imaging protocol: Computed tomographic angiography of the abdomen and pelvis with contrast. Exam focused on the arteries. 3D rendering (Not supervised by radiologist): MIP and/or 3D reconstructed images were created by the technologist. Radiation optimization: All CT scans at this facility use at least one of these dose optimization techniques: automated exposure control; mA and/or kV adjustment per patient size (includes targeted exams where dose is matched to clinical indication); or iterative reconstruction. Contrast material: ISO 370; Contrast volume: 80 ml; Contrast route: INTRAVENOUS (IV); COMPARISON: CT - ABDPELWO CT abdomen pelvis wo con 12/10/2017 6:49 AM FINDINGS: Aorta: Advanced atheromatous disease for sex and age of the infrarenal segment of abdominal aorta and common iliac arteries, but without measurable stenosis or occlusion. Celiac and mesenteric arteries: No occlusion or significant stenosis. Renal arteries: 3 Right renal arteries. All of these are widely patent Right iliac arteries: No occlusion or significant stenosis. Left iliac arteries: No occlusion or significant stenosis. Liver: No mass. Gallbladder and biliary ducts: Suspected tiny calcified gallstone in the gallbladder Pancreas: Unremarkable. No mass. No ductal dilation. Spleen: Unremarkable. No splenomegaly. Adrenal glands: Unremarkable. No mass. Kidneys and ureters: Unremarkable. No solid mass. No hydronephrosis. Stomach and bowel: Unremarkable. No obstruction. No mucosal thickening. Appendix: No evidence of appendicitis. Intraperitoneal space: Unremarkable. No free air. No significant fluid collection. Lymph nodes: Unremarkable. No enlarged lymph nodes. Urinary bladder: Unremarkable. No mass. Reproductive: Unremarkable as visualized. Bones/joints: No acute fracture. Soft tissues: Unremarkable. IMPRESSION: 1. No visible acute intra-abdominal abnormality. No major arterial stenosis/occlusion. 2. There is advanced atheromatous disease for the patient's sex and age, but no aneurysm, stenosis or occlusion.
--- NOTE | 2024-11-05 21:18 | XR_ITS ---
PROCEDURE INFORMATION: Exam: XR Chest Exam date and time: 11/05/2024 10:02 PM Age: 44 years old Clinical indication: Other: Chest pain TECHNIQUE: Imaging protocol: Radiologic exam of the chest. Views: 1 view. COMPARISON: CT ANGIO ABDOMEN PELVIS 11/05/2024 9:59 PM FINDINGS: Lungs: Peribronchial interstitial infiltrates are present bilaterally. No airspace disease. Pleural spaces: No pleural effusions. Heart/Mediastinum: Unremarkable. No cardiomegaly. Bones/joints: Osseous structures are appropriate for age. IMPRESSION: Airways disease or infectious bronchitis. No definite acute airspace pneumonia.
[2024-11-05 21:31] LABS: Troponin I < 0.01 ng/ml (0.00-0.034)
[2024-11-05] MEDS: MORPHINE 2MG/ML SYRINGE 4 MG IV (21:37)
[2024-11-05] MEDS: ONDANSETRON 4MG/2ML VIAL 4 MG IV (21:37)
[2024-11-05 21:51] LABS: Bacteria,Urine Trace /lpf; Squamous Epithelial Cell,Urine 20-50 #/hpf (0-5)
[2024-11-05] MEDS: SODIUM CHLORIDE 0.9% 10ML SYR (RAD ONLY) 10 ML IV (21:57)
[2024-11-05] MEDS: IOPAMIDOL-370 (76%);100ML BOTTLE 80 ML IV (21:57)
--- NOTE | 2024-11-05 23:14 | ECG_ITS ---
APPROVED REPORT Exam: Resting ECG HR:80 bpm ECG Measurements Heart Rate 80 AXES KS 153 P 59 QRSd 77 QRS 52 QT 361 T 43 QTc 398 Conclusion SINUS RHYTHM NORMAL ECG Electronically signed by : ANNETTA ARCOS, 11/06/2024 09:03:36
[2024-11-05 23:55] VITALS: BP 111/75; PULSE 79; RESP 18; TEMP 37.1; O2SAT 95
== END 2024-11-06 00:04 | disposition home or self-care (01) ==
PROVIDERS: Emergency Provider Student in an Organized Health Care Education/Training Program; PCP Nurse Practitioner Family
DX: R10.84 Generalized abdominal pain (principal); R11.2 Nausea with vomiting, unspecified; F17.210 Nicotine dependence, cigarettes, uncomplicated
CPT/HCPCS: 71045; 74174; 80053; 81001; 83605; 83690; 84484; 85025; 93005; 96374; 96375; 99284; 99285; J2270; J2405; Q9967